=== PATIENT | female | born 1985 | race African-American/Black ===

== ENCOUNTER 2016-11-22 08:32 | Emergency (ER) | payer MEDICAID, OTHER ==
[~2016-11-22] VITALS: Ht 182.9 cm; Wt 98.2 kg
[~2016-11-22 08:32] MED LIST: ERYT1O RIGHT EYE
[2016-11-22 08:39] VITALS: BP 138/90; PULSE 102; RESP 18; TEMP 99.8; O2SAT 99
[2016-11-22] MEDS ORDERED: ACETAMINOPHEN 325 MG TAB PO ONE (09:00)
--- NOTE | 2016-11-22 09:03 | PD ---
HPI Chief Complaint: Cold / Flu Symptoms Time Seen by Provider: 08:46 Travel History International Travel<30 days: No Contact w/Intl Traveler<30days: No Traveled to known affect area: No History of Present Illness HPI 31 y/o female presents with 2 day history of cough, congestion and general ill feeling. She denies specific sick contacts. She denies other concurrent complaints. She states she took [id number] cold medication and Aleve last night at 8 PM. She denies taking anything this morning. She denies possibility of . [facility] Past Medical History Medical History: Denies Significant Hx Blood Disorders: No Diminished Hearing: No Immunizations Current: No Tetanus Vaccination: Unknown Influenza Vaccination: No ?: Not : 3 Para: 3 Past Surgical History Surgical History: No Previous Surgery Social History Alcohol Use: Yes (mix drinks ) Tobacco Use: Yes (1.5-2 PPD) Substance Use: Yes (MARIJUANA) Allergies-Medications (Allergen,Severity, Reaction): Coded Allergies: No Known Allergies (Verified , 04/03/15) Reported Meds & Prescriptions Reported Meds & Active Scripts Active Review of Systems Except as stated in HPI: all other systems reviewed are Neg Physical Exam Narrative General: No apparent distress, well appearing ENT: Posterior oropharyngx clear without exudate or erythema, external auditory canals are normal. Bilateral TM clear Neck: Neck is supple, no meningeal signs, trachea is midline Cardiovascular: Regular rate and rhythm Lungs: No increased respiratory effort noted, CTA bilaterally Neuro: Awake, motor and sensation grossly intact, normal speech Data Data Last Documented VS Vital Signs Date Time Temp Pulse Resp B/P Pulse Ox O2 Delivery O2 Flow Rate FiO2 11/22/16 08:39 99.8 102 18 138/90 99 Room Air Orders Chest, Pa & Lat (11/22/16 ) Acetaminophen (Tylenol) (11/22/16 09:00) MDM Medical Decision Making Medical Screen Exam Complete: Yes Emergency Medical Condition: Yes Medical Record Reviewed: Yes (past history confirmed) Interpretation(s) cxr no acute Differential Diagnosis Upper respiratory infection, pneumonia, otitis media... Narrative Course Will check chest x-ray and reevaluate. Counseled on smoking cessation. Benign vitals and exam currently. No indication for influenza testing given no significant comorbidities and patient agrees to this. Will dose with Tylenol Patient denies any new complaints and states that they are feeling better. Patient happy with care, all questions answered. Patient knows that follow up is incumbent on them and to return to the emergency room immediately if new or worsening symptoms develop. Patient given strict return precautions, vitals reviewed and are normal, agrees to further workup as an outpatient. Diagnosis Primary Impression: Upper respiratory infection Qualified Code: J06.9 - Upper respiratory tract infection, unspecified type Patient Instructions: Cigarette Smoking and Your Health (GEN), General Instructions, How to Stop Smoking (DC) Additional Instructions: return as needed, follow with primary in 2 days for recheck, alternate tylenol and motrin Med/Other Pt SpecificInfo: No Change to Meds Scripts No Active Prescriptions or Reported Meds Disposition: 01 DISCHARGE HOME Condition: Stable Caren Voss MD Nov 22, 2016 09:03
--- NOTE | 2016-11-22 09:18 | RADHPO ---
EXAM DATE/TIME: 11/22/2016 08:58 [facility] COMPARISON: No previous studies available for comparison. INDICATIONS : Cold symptoms, cough, fever, runny nose x 2 days. MEDICAL HISTORY : None. SURGICAL HISTORY : None. ENCOUNTER: Initial ACUITY: 2 days PAIN SCORE: 0/10 LOCATION: chest FINDINGS: PA and lateral views of the chest demonstrate the lungs to be symmetrically aerated without evidence of mass, infiltrate or effusion. The cardiomediastinal contours are unremarkable. Osseous structure s are intact with mild scoliosis. CONCLUSION: No acute disease. There is no evidence of pneumonia. Riley Simon MD on November 22, 2016 at 9:16 Board Certified Radiologist. This report was verified electronically.
== END 2016-11-22 09:50 | disposition home or self-care (01) ==
LOC: PHED 08:32
DX: J06.9 Acute upper respiratory infection, unspecified (principal); F17.210 Nicotine dependence, cigarettes, uncomplicated
CPT/HCPCS: 71020; 99283

== ENCOUNTER 2017-02-26 16:51 | Emergency (ER) | payer MEDICAID, OTHER ==
[2017-02-26] VITALS (7 sets, daily range): BP systolic 105–145; BP diastolic 68–90; PULSE 60–110; RESP 16–19; TEMP 98.3; O2SAT 98–100
[~2017-02-26] VITALS: Ht 167.6 cm; Wt 100.0 kg
[2017-02-26] MEDS ORDERED: SODIUM CHLOR 0.9% 1000 ML INJ 1,000 ML IV SCH (17:32)
[2017-02-26] MEDS ORDERED: KETOROLAC TROMETHAMINE 30 MG/ML (IVP) VIAL IV PUSH ONE (17:45)
[2017-02-26] MEDS ORDERED: SODIUM CHLORIDE 0.9% FLUSH 10 ML FLUSH IV FLUSH PRN (17:45)
[2017-02-26] MEDS ORDERED: ONDANSETRON HCL 4 MG/2 ML VIAL IVP ONE (17:45)
--- NOTE | 2017-02-26 18:10 | PD ---
HPI Chief Complaint: Musculoskeletal Complaint Time Seen by Provider: 17:21 Travel History International Travel<30 days: No Contact w/Intl Traveler<30days: No Traveled to known affect area: No History of Present Illness HPI Patient is a 31-year-old female who comes in complaining of abdominal pain that wraps around to her back. She says it started yesterday and it has been getting a little better today, but she still has a lot of pain. She says the pain improves with movement, and is worse with sitting down. She denies any vaginal discharge, dysuria. She has had some diarrhea. She denies any fever or chills. She has not had any nausea or vomiting. She has not taken anything for the pain. She says it feels like "gas pain," but does not go away when she passes gas. PFSH Past Medical History Medical History: Denies Significant Hx Blood Disorders: No Diminished Hearing: No Immunizations Current: No ?: Not LMP: 02/16/17 : 3 Para: 3 Past Surgical History Surgical History: No Previous Surgery Social History Alcohol Use: Yes (mix drinks ) Tobacco Use: Yes (1.5-2 PPD) Substance Use: Yes (MARIJUANA) Allergies-Medications (Allergen,Severity, Reaction): Coded Allergies: No Known Allergies (Verified , 02/26/17) Reported Meds & Prescriptions Reported Meds & Active Scripts Active Lortab (Hydrocodone-Acetaminophen) 5-325 Mg Tab 1 Tab PO Q6H PRN Phenergan (Promethazine HCl) 25 Mg Tab 25 Mg PO Q6H PRN Cipro (Ciprofloxacin HCl) 500 Mg Tab 500 Mg PO BID 10 Days Flagyl (Metronidazole) 500 Mg Tab 500 Mg PO TID 10 Days Review of Systems Except as stated in HPI: all other systems reviewed are Neg General / Constitutional: No: Fever, Chills HENT: No: Headaches, Lightheadedness Cardiovascular: No: Chest Pain or Discomfort Respiratory: No: Shortness of Breath Gastrointestinal: Positive: Diarrhea, Abdominal Pain, No: Nausea, Vomiting Genitourinary: No: Dysuria, Flank Pain Musculoskeletal: No: Pain Skin: No Rash, No Change in Pigmentation Neurologic: No: Weakness, Dizziness Physical Exam Narrative GENERAL: Awake and alert, in no acute distress. SKIN: Focused skin assessment warm/dry. HEAD: Atraumatic. Normocephalic. EYES: Pupils equal and round. No scleral icterus. ENT: Mucous membranes pink and moist. NECK: Trachea midline. No JVD. CARDIOVASCULAR: Regular rate and rhythm. No murmur appreciated. RESPIRATORY: No accessory muscle use. Clear to auscultation. Breath sounds equal bilaterally. GASTROINTESTINAL: Abdomen soft, nondistended. Tender to palpation of the right upper quadrant, right lower quadrant and suprapubic area. No rebound, voluntary guarding. No CVA tenderness. : MUSCULOSKELETAL: No obvious deformities. No clubbing. No cyanosis. No edema. No spinal tenderness on palpation. NEUROLOGICAL: Awake and alert. No obvious cranial nerve deficits. Motor grossly within normal limits. Normal speech. PSYCHIATRIC: Appropriate mood and affect; insight and judgment normal. Data Data Last Documented VS Vital Signs Date Time Temp Pulse Resp B/P Pulse Ox O2 Delivery O2 Flow Rate FiO2 02/26/17 21:42 93 18 142/68 100 02/26/17 20:45 Room Air 02/26/17 16:55 98.3 Orders Basic Metabolic Panel (Bmp) (02/26/17 17:32) Complete Blood Count With Diff (02/26/17 17:32) Lipase (02/26/17 17:32) Urinalysis - C+S If Indicated (02/26/17 17:32) Ua Includes Microscopic (02/26/17 17:32) Ct Abd/Pel W Iv Contrast(Rout) (02/26/17 17:32) Iv Access Insert/Monitor (02/26/17 17:32) Ecg Monitoring (02/26/17 17:32) Oximetry (02/26/17 17:32) Ondansetron Inj (Zofran Inj) (02/26/17 17:45) Sodium Chlor 0.9% 1000 Ml Inj (Ns 1000 M (02/26/17 17:32) Sodium Chloride 0.9% Flush (Ns Flush) (02/26/17 17:45) Ed Urine Pregnancytest Poc (02/26/17 17:32) Hepatic Functional Panel (02/26/17 17:32) Ketorolac Inj (Toradol Inj) (02/26/17 17:45) Urine Culture (02/26/17 18:09) Wet Prep Profile (02/26/17 18:39) Gc And Chlamydia Pcr (02/26/17 18:39) Azithromycin Powd Pack (Zithromax Powd P (02/26/17 18:45) Ceftriaxone Inj (Rocephin Inj) (02/26/17 18:45) Lidocaine 1% Inj (50 Ml) (Xylocaine 1% I (02/26/17 18:45) Metronidazole (Flagyl) (02/26/17 19:15) Iohexol 350 Inj (Omnipaque 350 Inj) (02/26/17 20:10) Ondansetron Inj (Zofran Inj) (02/26/17 20:30) Morphine Inj (Morphine Inj) (02/26/17 20:30) Ciprofloxacin (Cipro) (02/26/17 21:15) Potassium Chloride (Kcl) (02/26/17 21:45) Labs Laboratory Tests Test 02/26/17 02/26/17 18:09 18:46 White Blood Count 11.3 TH/MM3 Red Blood Count 3.93 MIL/MM3 Hemoglobin 11.6 GM/DL Hematocrit 34.5 % Mean Corpuscular Volume 87.7 FL Mean Corpuscular Hemoglobin 29.5 PG Mean Corpuscular Hemoglobin 33.6 % Concent Red Cell Distribution Width 12.3 % Platelet Count 262 TH/MM3 Mean Platelet Volume 8.3 FL Neutrophils (%) (Auto) 70.7 % Lymphocytes (%) (Auto) 22.1 % Monocytes (%) (Auto) 5.5 % Eosinophils (%) (Auto) 1.2 % Basophils (%) (Auto) 0.5 % Neutrophils # (Auto) 8.0 TH/MM3 Lymphocytes # (Auto) 2.5 TH/MM3 Monocytes # (Auto) 0.6 TH/MM3 Eosinophils # (Auto) 0.1 TH/MM3 Basophils # (Auto) 0.1 TH/MM3 CBC Comment DIFF FINAL Differential Comment Urine Color YELLOW Urine Turbidity CLEAR Urine pH 6.0 Urine Specific [place] 1.027 Urine Protein TRACE mg/dL Urine Glucose (UA) NEG mg/dL Urine Ketones TRACE mg/dL Urine Occult Blood TRACE Urine Nitrite NEG Urine Bilirubin NEG Urine Leukocyte Esterase SMALL Urine RBC 4-9 /hpf Urine WBC 9-14 /hpf Urine Squamous Epithelial 0-5 /hpf Cells Microscopic Urinalysis Comment CULTURE INDICATED Sodium Level 142 MEQ/L Potassium Level 3.2 MEQ/L Chloride Level 106 MEQ/L Carbon Dioxide Level 27.9 MEQ/L Anion Gap 8 MEQ/L Blood Urea Nitrogen 9 MG/DL Creatinine 0.73 MG/DL Estimat Glomerular Filtration 111 ML/MIN Rate Random Glucose 92 MG/DL Calcium Level 8.8 MG/DL Total Bilirubin 0.6 MG/DL Direct Bilirubin 0.1 MG/DL Indirect Bilirubin 0.5 MG/DL Aspartate Amino Transf 12 U/L (AST/SGOT) Alanine Aminotransferase 14 U/L (ALT/SGPT) Alkaline Phosphatase 53 U/L Total Protein 7.0 GM/DL Albumin 3.3 GM/DL Lipase 79 U/L Clue Cells (Wet Prep) NONE SEEN Vaginal Trichomonas (Wet Prep) PRESENT Vaginal Yeast (Wet Prep) NONE SEEN Chlamydia trachomatis DNA NOT DETECTED (PCR) Neisseria gonorrhoeae DNA NOT DETECTED (PCR) MDM Medical Decision Making Medical Screen Exam Complete: Yes Emergency Medical Condition: Yes Medical Record Reviewed: Yes Differential Diagnosis UTI versus STD versus cholecystitis versus colitis Narrative Course Patient is a 31-year-old female who comes in complaining of abdominal pain. IV established and labs sent. Wet prep is positive for Trichomonas. Patient was treated with Rocephin, azithromycin, Flagyl. Patient signed out to Dr. Ceballos to follow-up CAT scan and disposition appropriately. Scripts Hydrocodone-Acetaminophen (Lortab)5-325 Mg Tab1 Tab PO Q6H PRN (PAIN) #30 TAB Ref 0 Prov:Keron Ceballos MD 02/26/17 Promethazine (Phenergan)25 Mg Tab25 Mg PO Q6H PRN (Nausea/Vomiting) #30 TAB Ref 0 Prov:Keron Ceballos MD 02/26/17 Ciprofloxacin (Cipro)500 Mg [id number] Mg PO BID 10 Days Ref 0 Prov:Keron Ceballos MD 02/26/17 Metronidazole (Flagyl)500 Mg [id number] Mg PO TID 10 Days Ref 0 Prov:Keron Ceballos MD 02/26/17 Condition: Stable Loly Jerry MD February 26, 2017 18:09
[2017-02-26 18:19] LABS: BLOOD, URINE TRACE (NEG); GLUCOSE,URINE NEG (NEG); KETONE, URINE TRACE mg/dL (NEG); NITRITE,URINE NEG (NEG)
[2017-02-26 18:25] LABS: BASOPHIL # 0.1 TH/MM3 (0-0.2); BASOPHIL % 0.5 % (0.0-2.0); EOSINOPHIL # 0.1 TH/MM3 (0-0.4); EOSINOPHIL % 1.2 % (0.0-4.0); HEMATOCRIT 34.5 % (35.0-46.0); HEMO FLAGS DIFF FINAL; LYMPH % 22.1 % (9.0-44.0); LYMPHOCYTE # 2.5 TH/MM3 (1.0-4.8); MEAN CELL VOLUME 87.7 FL (80.0-100.0); MEAN CORPUSCULAR HEMOGLOBIN 29.5 PG (27.0-34.0); MEAN CORPUSCULAR HGB CONC 33.6 % (32.0-36.0); MONO % 5.5 % (0.0-8.0); NEUT % 70.7 % (16.0-70.0); PLATELET COUNT 262 TH/MM3 (150-450); RED BLOOD COUNT 3.93 MIL/MM3 (4.00-5.30); RED CELL DISTRIBUTION WIDTH 12.3 % (11.6-17.2); WHITE BLOOD COUNT 11.3 TH/MM3 (4.0-11.0)
[2017-02-26 18:28] LABS: POTASSIUM 3.2 MEQ/L (3.5-5.1)
[2017-02-26 18:32] LABS: BICARBONATE 27.9 MEQ/L (21.0-32.0)
[2017-02-26 18:36] LABS: INDIRECT BILIRUBIN 0.5 MG/DL (0.0-0.8); SQUAMOUS EPITHELIAL CELL URINE 0-5 /hpf (0-5); TOTAL BILIRUBIN ADULT 0.6 MG/DL (0.2-1.0); URINE COLOR YELLOW (YELLW/STRAW)
[2017-02-26 18:37] LABS: COMMENT (UR) CULTURE INDICATED; CULTURE IF INDICATED CULTURE INDICATED
[2017-02-26] MEDS ORDERED: cefTRIAXone 250 MG VIAL IM ONE (18:45)
[2017-02-26] MEDS ORDERED: LIDOCAINE HCL 1% 50 ML VIAL IM ONE (18:45)
[2017-02-26] MEDS ORDERED: AZITHROMYCIN PWD FOR SUSP 1 GM PACKET PO ONE (18:45)
[2017-02-26] MEDS ORDERED: metroNIDAZOLE 500 MG TAB PO ONE (19:15)
[2017-02-26] MEDS ORDERED: IOHEXOL 350 MG/ML 10 ML VIAL (for RAD DIAG) IV ONE (20:10)
--- NOTE | 2017-02-26 20:27 | RADHPO ---
EXAM DATE/TIME: 02/26/2017 19:33 [facility] COMPARISON: No previous studies available for comparison. INDICATIONS : Bilateral lower quadrant pain radiating into back. IV CONTRAST: 100 cc Omnipaque 350 (iohexol) IV ORAL CONTRAST: No oral contrast ingested. RADIATION DOSE: 19.54 CTDIvol (mGy) MEDICAL HISTORY : None SURGICAL HISTORY : None. ENCOUNTER: Initial ACUITY: 1 day PAIN SCALE: 6/10 LOCATION: Bilateral lower quadrant TECHNIQUE: Volumetric scanning of the abdomen and pelvis was performed. Using automated exposure control and ad justment of the mA and/or kV according to patient size, radiation dose was kept as low as reasonably achievable to obtain optimal diagnostic quality images. FINDINGS: Lung bases are clear. No acute findings in the liver, spleen, adrenals, kidneys or pancreas. No free fluid. No bowel obstruction. There is mild mural thickening of the colon, especially on the left side characteristic of mild colit is. Appendix is normal. Probable follicular cysts in the ovaries. Small amount of fluid in the endome trial cavity. CONCLUSION: 1. Mild mural thickening of the colon, predominantly the left colon characteristic of a mild colitis. No obstruction, free fluid or free air. Yunior Richey MD on February 26, 2017 at 20:21 Board Certified Radiologist. This report was verified electronically.
[2017-02-26] MEDS ORDERED: MORPHINE SULFATE 4 MG/ML INJ IV PUSH ONE (20:30)
[2017-02-26] MEDS ORDERED: ONDANSETRON HCL 4 MG/2 ML VIAL IV ONE (20:30)
[2017-02-26] MEDS ORDERED: HYDR-3533 PO (21:05)
[2017-02-26] MEDS ORDERED: PROM25TA5 PO (21:05)
[2017-02-26] MEDS ORDERED: METR-1 PO (21:05)
[2017-02-26] MEDS ORDERED: CIPR-9 PO (21:05)
--- NOTE | 2017-02-26 21:06 | PD ---
Physical Exam Time Seen by Provider: 20:[address] Taylor left me this patient to check the CT abdomen/pelvis and make a disposition. Data Data Last Documented VS Vital Signs Date Time Temp Pulse Resp B/P Pulse Ox O2 Delivery O2 Flow Rate FiO2 02/26/17 20:50 16 02/26/17 20:10 110 140/80 99 Room Air 02/26/17 16:55 98.3 Orders Basic Metabolic Panel (Bmp) (02/26/17 17:32) Complete Blood Count With Diff (02/26/17 17:32) Lipase (02/26/17 17:32) Urinalysis - C+S If Indicated (02/26/17 17:32) Ua Includes Microscopic (02/26/17 17:32) Ct Abd/Pel W Iv Contrast(Rout) (02/26/17 17:32) Iv Access Insert/Monitor (02/26/17 17:32) Ecg Monitoring (02/26/17 17:32) Oximetry (02/26/17 17:32) Ondansetron Inj (Zofran Inj) (02/26/17 17:45) Sodium Chlor 0.9% 1000 Ml Inj (Ns 1000 M (02/26/17 17:32) Sodium Chloride 0.9% Flush (Ns Flush) (02/26/17 17:45) Ed Urine Pregnancytest Poc (02/26/17 17:32) Hepatic Functional Panel (02/26/17 17:32) Ketorolac Inj (Toradol Inj) (02/26/17 17:45) Urine Culture (02/26/17 18:09) Wet Prep Profile (02/26/17 18:39) Gc And Chlamydia Pcr (02/26/17 18:39) Azithromycin Powd Pack (Zithromax Powd P (02/26/17 18:45) Ceftriaxone Inj (Rocephin Inj) (02/26/17 18:45) Lidocaine 1% Inj (50 Ml) (Xylocaine 1% I (02/26/17 18:45) Metronidazole (Flagyl) (02/26/17 19:15) Iohexol 350 Inj (Omnipaque 350 Inj) (02/26/17 20:10) Ondansetron Inj (Zofran Inj) (02/26/17 20:30) Morphine Inj (Morphine Inj) (02/26/17 20:30) Labs Laboratory Tests Test 02/26/17 02/26/17 18:09 18:46 White Blood Count 11.3 TH/MM3 Red Blood Count 3.93 MIL/MM3 Hemoglobin 11.6 GM/DL Hematocrit 34.5 % Mean Corpuscular Volume 87.7 FL Mean Corpuscular Hemoglobin 29.5 PG Mean Corpuscular Hemoglobin 33.6 % Concent Red Cell Distribution Width 12.3 % Platelet Count 262 TH/MM3 Mean Platelet Volume 8.3 FL Neutrophils (%) (Auto) 70.7 % Lymphocytes (%) (Auto) 22.1 % Monocytes (%) (Auto) 5.5 % Eosinophils (%) (Auto) 1.2 % Basophils (%) (Auto) 0.5 % Neutrophils # (Auto) 8.0 TH/MM3 Lymphocytes # (Auto) 2.5 TH/MM3 Monocytes # (Auto) 0.6 TH/MM3 Eosinophils # (Auto) 0.1 TH/MM3 Basophils # (Auto) 0.1 TH/MM3 CBC Comment DIFF FINAL Differential Comment Urine Color YELLOW Urine Turbidity CLEAR Urine pH 6.0 Urine Specific [place] 1.027 Urine Protein TRACE mg/dL Urine Glucose (UA) NEG mg/dL Urine Ketones TRACE mg/dL Urine Occult Blood TRACE Urine Nitrite NEG Urine Bilirubin NEG Urine Leukocyte Esterase SMALL Urine RBC 4-9 /hpf Urine WBC 9-14 /hpf Urine Squamous Epithelial 0-5 /hpf Cells Microscopic Urinalysis Comment CULTURE INDICATED Sodium Level 142 MEQ/L Potassium Level 3.2 MEQ/L Chloride Level 106 MEQ/L Carbon Dioxide Level 27.9 MEQ/L Anion Gap 8 MEQ/L Blood Urea Nitrogen 9 MG/DL Creatinine 0.73 MG/DL Estimat Glomerular Filtration 111 ML/MIN Rate Random Glucose 92 MG/DL Calcium Level 8.8 MG/DL Total Bilirubin 0.6 MG/DL Direct Bilirubin 0.1 MG/DL Indirect Bilirubin 0.5 MG/DL Aspartate Amino Transf 12 U/L (AST/SGOT) Alanine Aminotransferase 14 U/L (ALT/SGPT) Alkaline Phosphatase 53 U/L Total Protein 7.0 GM/DL Albumin 3.3 GM/DL Lipase 79 U/L Clue Cells (Wet Prep) NONE SEEN Vaginal Trichomonas (Wet Prep) PRESENT Vaginal Yeast (Wet Prep) NONE SEEN MDM Medical Record Reviewed: Yes Supervised Visit with GOGO: No Interpretation(s) The CT abdomen/pelvis shows mild mural thickening of the colon, predominantly the left colon characteristic of mild colitis. No obstruction, free fluid or free air is present. No abscess formation is present. The CBC shows a white count of 11,300 with hematocrit of 34.5 but is otherwise unremarkable. The complete metabolic profile shows a potassium of 3.2 and albumin of 3.3 but is otherwise unremarkable. The lipase is normal. The urine shows trace ketones, trace occult blood, small leukocyte Estrace with 4-9 red cells and 9-14 white cells and culture is indicated. The wet prep shows trichomonas is present. The wet prep is negative for yeast and clue cells. Differential Diagnosis Cholecystitis, colitis, appendicitis, electrolyte disorder, urinary tract infection, entered bowel abscess Narrative Course The patient has colitis and Trichomonas vaginitis. Plan: The patient be put on Flagyl and Cipro. She was offered admission but declined. She will also get Lortab 5 for pain and Phenergan for nausea. She should increase clear liquids in her diet and avoid fatty foods. Diagnosis Primary Impression: Colitis Additional Instruction: Increase clear liquids like Gatorade in your diet and stay away from fatty foods for the next 4-5 days. Follow-up with your primary care physician this week. The Flagyl is one tablet 3 times a day for 10 days and you cannot drink alcohol with this medication. The Cipro's twice daily for 10 days. The Phenergan is one tablet every 6 hours as needed for nausea and the Lortab as one tablet every 6 hours as needed for pain. As you know, you were offered admission today and if this does not work at home you may need admission. Med/Other Pt SpecificInfo: Prescription(s) given Scripts Hydrocodone-Acetaminophen (Lortab)5-325 Mg Tab1 Tab PO Q6H PRN (PAIN) #30 TAB Ref 0 Prov:Keron Ceballos MD 02/26/17 Promethazine (Phenergan)25 Mg Tab25 Mg PO Q6H PRN (Nausea/Vomiting) #30 TAB Ref 0 Prov:Kreon Ceballos MD 02/26/17 Ciprofloxacin (Cipro)500 Mg [id number] Mg PO BID 10 Days Ref 0 Prov:Keron Ceballos MD 02/26/17 Metronidazole (Flagyl)500 Mg [id number] Mg PO TID 10 Days Ref 0 Prov:Keron Ceballos MD 02/26/17 Disposition: 01 DISCHARGE HOME Condition: Stable Keron Ceballos MD February 26, 2017 21:06
[2017-02-26 21:14] LABS: CHLAMYDIA PCR NOT DETECTED (NOT DETECT); NEISSERIA PCR NOT DETECTED (NOT DETECT)
[2017-02-26] MEDS ORDERED: CIPROFLOXACIN 500 MG TAB PO ONE (21:15)
[2017-02-26] MEDS ORDERED: POTASSIUM CHLORIDE 20 MEQ CONTROLLED RELEASE TAB PO ONE (21:45)
== END 2017-02-26 22:14 | disposition home or self-care (01) ==
LOC: PHED 16:51
DX: K52.9 Noninfective gastroenteritis and colitis, unspecified (principal); N76.0 Acute vaginitis; A59.9 Trichomoniasis, unspecified; B96.29 Other Escherichia coli [E. coli] as the cause of diseases classified elsewhere
CPT/HCPCS: 74177; 80048; 80076; 81001; 83690; 84703; 85025; 87086; 87210; 87491; 87591; 96361; 96374; 96375; 96376; 99285; J0696; J1885; J2270; J2405; J7030; Q9967

== ENCOUNTER 2017-11-19 15:30 | Emergency (ER) | payer MEDICAID ==
[~2017-11-19 15:30] MED LIST changes: +CIPR-9 PO; -ERYT1O RIGHT EYE; +HYDR-3533 PO; +METR-1 PO; +PROM25TA5 PO
[2017-11-19 15:32] VITALS: BP 133/78; PULSE 102; RESP 14; TEMP 98.5; O2SAT 98
[2017-11-19] MEDS ORDERED: IBUP-232 PO (17:51)
--- NOTE | 2017-11-19 17:51 | PD ---
HPI Chief Complaint: Abdominal Pain Time Seen by Provider: 17:37 Travel History International Travel<30 days: No Contact w/Intl Traveler<30days: No Traveled to known affect area: No History of Present Illness HPI 32-year-old female complains of lower abdominal pelvic pain. Patient states that he started having intermittent lower abdominal pelvic cramping since last night. Patient denies any headache. Patient denies any chest pain or shortness of breath. Patient denies nausea vomiting diarrhea. Patient denies any dysuria or frequency. Patient denies any vaginal discharge or bleeding. Patient states that she has low abdominal pelvic cramping every month before her period. Patient states that her menstruation period about to start soon. Patient denies any other problem. PFSH Past Medical History Blood Disorders: No Diminished Hearing: No Immunizations Current: No ?: Not LMP: 11/02/2017 : 3 Para: 3 Social History Alcohol Use: Yes (mix drinks ) Tobacco Use: Yes (1.5-2 PPD) Substance Use: Yes (MARIJUANA) Allergies-Medications (Allergen,Severity, Reaction): Coded Allergies: No Known Allergies (Verified , 02/26/17) Reported Meds & Prescriptions Reported Meds & Active Scripts Active Lortab (Hydrocodone-Acetaminophen) 5-325 Mg Tab 1 Tab PO Q6H PRN Phenergan (Promethazine HCl) 25 Mg Tab 25 Mg PO Q6H PRN Cipro (Ciprofloxacin HCl) 500 Mg Tab 500 Mg PO BID 10 Days Flagyl (Metronidazole) 500 Mg Tab 500 Mg PO TID 10 Days Review of Systems General / Constitutional: No: Fever Eyes: No: Visual changes HENT: No: Headaches Cardiovascular: No: Chest Pain or Discomfort Respiratory: No: Shortness of Breath Gastrointestinal: Positive: Abdominal Pain Genitourinary: Positive: Pelvic Pain, No: Dysuria Musculoskeletal: No: Pain Skin: No Rash Neurologic: No: Weakness Psychiatric: No: Depression Endocrine: No: Polydipsia Hematologic/Lymphatic: No: Easy Bruising Physical Exam Narrative GENERAL: Well-nourished, well-developed patient. SKIN: Focused skin assessment warm/dry. HEAD: Normocephalic. EYES: No scleral icterus. No injection or drainage. NECK: Supple, trachea midline. No JVD or lymphadenopathy. CARDIOVASCULAR: Regular rate and rhythm without murmurs, gallops, or rubs. RESPIRATORY: Breath sounds equal bilaterally. No accessory muscle use. GASTROINTESTINAL: Abdomen soft, nondistended. Patient has mild tenderness on palpation lower abdomen suprapubic area. No rebound tenderness. No mass. MUSCULOSKELETAL: No cyanosis, or edema. BACK: Nontender without obvious deformity. No CVA tenderness. Data Data Last Documented VS Vital Signs Date Time Temp Pulse Resp B/P (MAP) Pulse Ox O2 Delivery O2 Flow Rate FiO2 11/19/17 15:32 98.5 102 14 133/78 (96) 98 Orders Orders Urinalysis - C+S If Indicated (11/19/17 15:42) Ed Urine Pregnancytest Poc (11/19/17 15:42) Gc And Chlamydia Pcr (11/19/17 15:42) MDM Medical Decision Making Medical Screen Exam Complete: Yes Emergency Medical Condition: Yes Interpretation(s) Urine test negative. GC chlamydia PCR pending. Differential Diagnosis Differential diagnosis including dysmenorrhea, ovarian cyst, ovarian torsion, threatened AB, ectopic . Narrative Course 32-year-old female with low abdominal pelvic pain. Patient had recurrent low abdomen pelvic pain right before her menstruation period every month for the past few months. Diagnosis Primary Impression: Dysmenorrhea Patient Instructions: General Instructions Additional Instructions: Ibuprofen as needed for pain. Follow-up with tin recovery worker. Return if worse. Med/Other Pt SpecificInfo: Prescription(s) given Scripts Ibuprofen (Ibuprofen) 600 Mg Tab 600 MG PO TID for Pain, #60 TAB 0 Refills Prov: Luc Riggs MD 11/19/17 Disposition: 01 DISCHARGE HOME Condition: Stable Luc Riggs MD Nov 19, 2017 17:51
[2017-11-19 18:05] VITALS: BP 124/78
[2017-11-19 18:14] LABS: AMORPHOUS SEDIMENT, URINE MOD; BACTERIA, URINE OCC /hpf; BILIRUBIN, URINE NEG (NEG); BLOOD, URINE NEG (NEG); GLUCOSE,URINE NEG (NEG); HYALINE CAST, URINE 1 /lpf (RARE); KETONE, URINE NEG (NEG); MUCUS URINE FEW /lpf (OCC); NITRITE,URINE NEG (NEG); SQUAMOUS EPITHELIAL CELL URINE 11 /hpf (0-5); URINE COLOR YELLOW (YELLW/STRAW); URINE LEUKOCYTE ESTERASE MOD (NEG)
[2017-11-19] MEDS ORDERED: IBUPROFEN 600 MG TAB PO ONE (18:15)
== END 2017-11-19 18:17 | disposition home or self-care (01) ==
LOC: NEPD 15:30
DX: N94.6 Dysmenorrhea, unspecified (principal); F17.210 Nicotine dependence, cigarettes, uncomplicated; Z79.899 Other long term (current) drug therapy
CPT/HCPCS: 81001; 84703; 87491; 87591; 99283

== ENCOUNTER 2018-01-28 17:47 | Emergency (ER) | payer MEDICAID ==
[~2018-01-28] VITALS: Ht 167.6 cm; Wt 96.4 kg
[~2018-01-28 17:47] MED LIST changes: +IBUP-232 PO
[2018-01-28 18:05] VITALS: BP 161/87; PULSE 89; RESP 18; TEMP 99.2; O2SAT 100
--- NOTE | 2018-01-28 19:02 | PD ---
HPI Chief Complaint: Fall Time Seen by Provider: 18:45 Travel History International Travel<30 days: No Contact w/Intl Traveler<30days: No Traveled to known affect area: No History of Present Illness HPI 32-year-old female presents to the emergency room for evaluation of right lower back pain after falling one week ago. Patient ran into a forklift at work with her shins and then fell forward striking her chin on the ground. No loss of consciousness. She has since had significant bilateral pelaez pain and right- sided low back pain for which she has been taking ibuprofen and drinking alcohol. There is no radiation of symptoms. Patient states pain is severe. It is intermittent, currently 3 out of 10. States when she has spasms that gets up to 7/8 out of 10. She has an appointment with a back doctor in 4 days but states she cannot bear the pain until then. Patient denies upper or lower extremity paresthesias, saddle anesthesia, or loss of bowel or bladder control. She denies any fever, weight loss, or IV drug use. PFSH Past Medical History Blood Disorders: No Diminished Hearing: No Immunizations Current: No ?: Not LMP: 01/08/2018 : 3 Para: 3 Social History Alcohol Use: Yes (mix drinks ) Tobacco Use: Yes (1.5-2 PPD) Substance Use: Yes (MARIJUANA) Allergies-Medications (Allergen,Severity, Reaction): Coded Allergies: No Known Allergies (Verified , 02/26/17) Reported Meds & Prescriptions Reported Meds & Active Scripts Active Flexeril (Cyclobenzaprine HCl) 5 Mg Tab 5 Mg PO Q12HR Ibuprofen 600 Mg Tab 600 Mg PO TID Lortab (Hydrocodone-Acetaminophen) 5-325 Mg Tab 1 Tab PO Q6H PRN Phenergan (Promethazine HCl) 25 Mg Tab 25 Mg PO Q6H PRN Cipro (Ciprofloxacin HCl) 500 Mg Tab 500 Mg PO BID 10 Days Flagyl (Metronidazole) 500 Mg Tab 500 Mg PO TID 10 Days Review of Systems Except as stated in HPI: all other systems reviewed are Neg Physical Exam Narrative GENERAL: Well-nourished, well-developed female no acute distress. Afebrile. Ambulatory. SKIN: Focused skin assessment warm/dry. HEAD: Normocephalic. EYES: No scleral icterus. No injection or drainage. NECK: Supple, trachea midline. No JVD or lymphadenopathy. CARDIOVASCULAR: Regular rate and rhythm without murmurs, gallops, or rubs. RESPIRATORY: Breath sounds equal bilaterally. No accessory muscle use. MUSCULOSKELETAL: No cyanosis, or edema. BACK: No CVA tenderness. No rash. No point tenderness on palpation of the spine. Mild tenderness to palpation in the right lower paraspinous musculature of the lumbar spine. Data Data Last Documented VS Vital Signs Date Time Temp Pulse Resp B/P (MAP) Pulse Ox O2 Delivery O2 Flow Rate FiO2 01/28/18 18:05 99.2 89 18 161/87 (111) 100 Orders Orders Spine, Lumbar - Ltd (Ap & Lat) (01/28/18 ) Ed Discharge Order (01/28/18 19:26) [facility] Medical Decision Making Medical Screen Exam Complete: Yes Emergency Medical Condition: Yes Medical Record Reviewed: Yes Differential Diagnosis Back strain, spasm, contusion, fracture, dislocation Narrative Course 32-year-old female presents to the emergency room for evaluation of bilateral anterior pelaez pain and right-sided low back pain after falling one week ago. Patient struck her legs against a forklift and fell forward. She has been self- medicating without significant relief in symptoms. Patient is ambulatory in the ED. She has no tenderness of the midline spine. No red flag symptoms. X- ray is negative. Patient was reassured and discharged with prescription for Flexeril. Told to follow-up as planned or return for worsening symptoms. She understands and agrees to plan. Diagnosis Primary Impression: Low back strain Qualified Codes: S39.012A - Strain of muscle, fascia and tendon of lower back , initial encounter Additional Impression: Contusion of multiple sites of lower extremity Qualified Codes: S80.10XA - Contusion of unspecified lower leg, initial encounter Referrals: Primary Care Physician Additional Instructions: Rest and drink plenty of fluids. Take Robaxin as directed, as needed for pain. Take ibuprofen with food as directed, as needed for pain. Apply ice to the affected area for 20 minutes at a time, as needed for pain and swelling. Follow-up with a primary care physician. Return to the emergency room for worsening symptoms. Med/Other Pt SpecificInfo: Prescription(s) given Scripts Cyclobenzaprine (Flexeril) 5 Mg Tab 5 MG PO Q12HR for Muscle Spasm, #15 TAB 0 Refills Prov: Mauricio Song MD 01/28/18 Disposition: 01 DISCHARGE HOME Condition: Stable Katrina Quevedo Jan 28, 2018 19:02
--- NOTE | 2018-01-28 19:20 | RADRPT ---
EXAM DATE/TIME: 01/28/2018 19:01 [facility] COMPARISON: No previous studies available for comparison. INDICATIONS : Lower back pain after fall. MEDICAL HISTORY : None. SURGICAL HISTORY : None. ENCOUNTER: Initial ACUITY: 1 week PAIN SCORE: 4/10 LOCATION: Lower back. FINDINGS: Two view examination was performed. There are five non-rib bearing vertebral bodies. The vertebral bodies are in normal alignment without evidence of subluxation or scoliosis. The disc spaces are bianca ntained. The pedicles are intact. Bony mineralization is normal. No fracture is identified. CONCLUSION: No fracture, subluxation or other abnormality demonstrated of the lumbar spine. Castillo Rivas MD on January 28, 2018 at 19:17 Board Certified Radiologist. This report was verified electronically.
[2018-01-28] MEDS ORDERED: CYCL5TAB PO (19:26)
== END 2018-01-28 20:19 | disposition home or self-care (01) ==
LOC: NEPK 17:47
DX: S39.012A Strain of muscle, fascia and tendon of lower back, initial encounter (principal); S80.10XA Contusion of unspecified lower leg, initial encounter; F17.210 Nicotine dependence, cigarettes, uncomplicated; W01.0XXA Fall on same level from slipping, tripping and stumbling without subsequent striking against object, initial encounter; Y99.0 Civilian activity done for income or pay
CPT/HCPCS: 72100; 99283